=== PATIENT | male | born 1990 | race Caucasian/White ===

== ENCOUNTER 2024-09-08 15:09 | Emergency (ER) | payer OTHER, SELFPAY ==
[2024-09-08 15:13] VITALS: BP 126/81; PULSE 82; RESP 16; TEMP 37; O2SAT 99; BMI 27.3
--- NOTE | 2024-09-08 15:18 | DI.RAD.S_ITS ---
PROCEDURE: XR ANKLE RT MIN 3V INDICATIONS: rolled ankle/felt a pop TECHNIQUE: 3 views of the ankle were acquired. COMPARISON: None. FINDINGS: Bones: No fractures or dislocations. Ankle mortise is normally aligned. No suspicious bony lesions. Soft tissues: No tibiotalar joint effusion. Achilles tendon appears normal. Lateral malleolar soft tissue swelling. IMPRESSION: No acute osseous abnormality. If pain persists with conservative management, consider repeat x-ray in 10-14 days or cross-sectional imaging. Dictated by: Gerardo Spear M.D. on 09/08/2024 at 16:11 Approved by: Gerardo Spear M.D. on 09/08/2024 at 16:25
[2024-09-08 16:24] VITALS: PULSE 78
--- NOTE | 2024-09-08 16:56 | ED.LOWEXIN ---
HPI - Extremity Injury (Lower) <Blanca Arenas PA-C - Last Filed: 09/08/24 20:01> General Chief Complaint: Extremity Injury, Lower Stated Complaint: Ankle Injury Time Seen by Provider: 09/08/24 16:35 Source: patient Mode of arrival: EMS History of Present Illness HPI Narrative: Mr. García is an otherwise healthy 34-year-old male who presents to the emergency department for right foot and ankle pain after a twisting injury that occurred at work prior to arrival. Patient is a protective services case worker. Was walking downstairs when he stepped with his right foot and rolled his ankle internally sustaining immediate pain and popping sensation. Pain is primarily on the lateral aspect of the right ankle and also the dorsal aspect of the foot but pain is now starting to spread to the medial ankle as well. He has some tingling of the foot. He is unable to bear any weight because of the pain. He denies any other injuries, he did not fall or hit his head. Related Data Allergies Allergy/AdvReac Type Severity Reaction Status Date / Time No Known Drug Allergies Allergy Verified 09/08/24 15:13 Review of Systems <Blanca Arenas PA-C - Last Filed: 09/08/24 20:01> Review of Systems ROS Unobtainable: All systems reviewed & are unremarkable except as noted in HPI and below Patient History <Blanca Arenas PA-C - Last Filed: 09/08/24 20:01> Social History Smoking Status: Never smoker Smoking Status: Never smoker tobacco type: smokeless tobacco Exam <Blanca Arenas PA-C - Last Filed: 09/08/24 20:01> Narrative Exam Narrative: GENERAL: 34 year old patient appears stated age. Well-developed patient, in no acute distress. HEAD: Atraumatic. Normocephalic. CARDIOVASCULAR: Regular rate RESPIRATORY: ?Nonlabored respirations. ?Speaking in clear, full sentences. EXTREMITIES: Tenderness to palpation of right ankle lateral and medial malleolus, dorsal midfoot. Swelling over right lateral malleolus. No ecchymosis. No tenderness to palpation of right heel, Achilles tendon, phalanxes. No tenderness to palpation of galloway or knee on the right side. Patient has strong 2+ bilateral DP and PT pulses, brisk capillary refill in all toes, sensation intact to light touch in the plantar and dorsal aspect of bilateral feet. Right lower extremity compartment is soft and compressible. SKIN: No rash or erythema of visible areas Initial Vital Signs Initial Vital Signs: Vital Signs Temperature 98.6 F 09/08/24 15:13 Pulse Rate 82 09/08/24 15:13 Respiratory Rate 16 09/08/24 15:13 Blood Pressure 126/81 09/08/24 15:13 Pulse Oximetry 99 09/08/24 15:13 Oxygen Delivery Method Room Air 09/08/24 15:13 <Jorge DelT oro MD - Last Filed: 09/10/24 12:44> Initial Vital Signs Initial Vital Signs: Vital Signs Temperature 98.6 F 09/08/24 15:13 Pulse Rate 82 09/08/24 15:13 Respiratory Rate 16 09/08/24 15:13 Blood Pressure 126/81 09/08/24 15:13 Pulse Oximetry 99 09/08/24 15:13 Oxygen Delivery Method Room Air 09/08/24 15:13 Course <Blanca Arenas PA-C - Last Filed: 09/08/24 20:01> Orders Ordered: Discontinued Medications Hydrocodone Bitart/Acetaminophen (Hydrocodone/Acet 5/325 Tablet) 1 tab PO NOW ONE Stop: 09/08/24 17:08 Last Admin: 09/08/24 17:19 Dose: 1 tab Documented By: MANSOOR Ibuprofen (Ibuprofen 400 Mg Tablet) 600 mg PO NOW ONE Stop: 09/08/24 17:08 Last Admin: 09/08/24 17:19 Dose: 600 mg Documented By: MANSOOR Vital Signs Vital signs: Vital Signs - 8 hr 09/08/24 15:13 09/08/24 16:24 09/08/24 19:02 Temperature 98.6 F 98 F Pulse Rate 82 80 Pulse Rate [Right Dorsalis Pedis] 78 Respiratory Rate 16 16 Blood Pressure 126/81 122/73 Pulse Oximetry 99 100 Oxygen Delivery Method Room Air Room Air <Jorge Del Toro MD - Last Filed: 09/10/24 12:44> Orders Ordered: Discontinued Medications Hydrocodone Bitart/Acetaminophen (Hydrocodone/Acet 5/325 Tablet) 1 tab PO NOW ONE Stop: 09/08/24 17:08 Last Admin: 09/08/24 17:19 Dose: 1 tab Documented By: MANSOOR Ibuprofen (Ibuprofen 400 Mg Tablet) 600 mg PO NOW ONE Stop: 09/08/24 17:08 Last Admin: 09/08/24 17:19 Dose: 600 mg Documented By: MANSOOR Vital Signs Vital signs: Vital Signs - 8 hr 09/08/24 15:13 09/08/24 16:24 09/08/24 19:02 Temperature 98.6 F 98 F Pulse Rate 82 80 Pulse Rate [Right Dorsalis Pedis] 78 Respiratory Rate 16 16 Blood Pressure 126/81 122/73 Pulse Oximetry 99 100 Oxygen Delivery Method Room Air Room Air MDM - Extremity Injury (Lower) <Blanca Arenas PA-C - Last Filed: 09/08/24 20:01> Imaging Data Right Ankle and Right Foot X-Ray: Radiologist's Impression: PROCEDURE: XR ANKLE RT MIN 3V INDICATIONS: rolled ankle/felt a pop TECHNIQUE: 3 views of the ankle were acquired. COMPARISON: None. FINDINGS: Bones: No fractures or dislocations. Ankle mortise is normally aligned. No suspicious bony lesions. Soft tissues: No tibiotalar joint effusion. Achilles tendon appears normal. Lateral malleolar soft tissue swelling. IMPRESSION: No acute osseous abnormality. If pain persists with conservative management, consider repeat x-ray in 10-14 days or cross-sectional imaging. PROCEDURE: XR FOOT RT MIN 3V INDICATIONS: ankle and dorsal right foot pain after twisting injury TECHNIQUE: 3 views of the foot were acquired. COMPARISON: None. FINDINGS: Bones: No fractures or dislocations. No suspicious bony lesions. Soft tissues: No tibiotalar joint effusion. Achilles tendon appears normal. IMPRESSION: No acute bony abnormality. [facility] Narrative Medical decision making narrative: 34-year-old male who presents to the emergency department for right foot and ankle pain after a twisting injury that occurred at work prior to arrival. Differential diagnosis includes but is not limited to ankle fracture, foot fracture, ankle sprain, ankle strain, ligament injury, etc. On exam patient is in no acute distress, nontoxic appearing, vital signs appropriate. He is significant swelling on the lateral aspect of the right ankle, foot is otherwise neurovascularly intact, soft compartments, Achilles tendon intact. X-ray right foot and ankle ordered, we will treat pain with ibuprofen hydrocodone-acetaminophen. Foot and ankle x-ray negative for acute bony abnormality. Suspect right ankle sprain/ligament injury on the lateral aspect from inversion injury. Patient was placed into a right ankle aircast stirrup and provided with crutches for support. Recommended he follow up with Orthopedics, at 8pm I did call to provide him with [facility] information for Dr. Palomino as I did forget it on his discharge paperwork earlier today. Patient verbalized understanding of all information prior to discharge was agreeable to the plan, stable for discharge home with crutches. ED return precautions discussed. Discharge Plan Departure Patient Disposition: Home Clinical Impression: Inversion sprain of right ankle Qualifiers: Encounter type: initial encounter Qualified Code(s): S93.401A - Sprain of unspecified ligament of right ankle, initial encounter Instructions: DI for Ankle Sprain Activity Restrictions/Additional Instructions: Dear Mr. García, Today you were evaluated for right ankle and foot pain after an injury that occurred at work. X-ray of your right foot and ankle do not show any obvious fractures. Your symptoms are most likely a result of a sprain or injury to the ligaments in the ankle. It is very important to follow up with Orthopedics for further evaluation. Please continue using the crutches and splint as needed for pain. You may start walking on the foot/ankle if the pain improves Please use RICE therapy for your pain in addition to ibuprofen/acetaminophen. Rest the painful area. Ice the area of pain/swelling for at least 15 minutes, 4x a day. Compress the area of swelling using a brace, wrap, or splint if applied. Elevate the painful or swollen extremity by supporting it above the level of the heart with pillows when sitting or laying. Please take Ibuprofen (Motrin/Advil) or Acetaminophen (Tylenol) for pain. These are available over the counter. You may take Ibuprofen 600 mg every 8 hours with food for pain. You may also take Acetaminophen 650 mg every 4-6 hours for pain. Do not exceed 3000 mg of Tylenol a day as this can cause liver damage. Do not drink alcohol with either of these medications. Please follow up with your primary care doctor within the next 2-3 days for ER follow-up. (If you do not have a PCP you can call [phone]. ?to schedule an appointment with an [facility] Primary Care Provider) IF YOU DEVELOP ANY NEW OR WORSENING SYMPTOMS, RETURN TO THE ER! Please read the attached instructions, they highlight more specific treatments and interventions for you at home. Thank you for letting me participate in your care, Blanca Arenas PA-C Stand Alone Forms: Patient Portal/API/Survey, Work Release Note ED Sign-out <Jorge Del Toro MD - Last Filed: 09/10/24 12:44> Cosign ED Attending Cospatrickature Attestation: I was immediately available in the department for consultation. ?This documentation has been reviewed and I agree with assessment and plan. Supervised by Jorge Del Toro MD
--- NOTE | 2024-09-08 17:07 | DI.RAD.S_ITS ---
PROCEDURE: XR FOOT RT MIN 3V INDICATIONS: ankle and dorsal right foot pain after twisting injury TECHNIQUE: 3 views of the foot were acquired. COMPARISON: None. FINDINGS: Bones: No fractures or dislocations. No suspicious bony lesions. Soft tissues: No tibiotalar joint effusion. Achilles tendon appears normal. IMPRESSION: No acute bony abnormality. Dictated by: Chantelle Ness M.D. on 09/08/2024 at 17:33 Approved by: Chantelle Ness M.D. on 09/08/2024 at 17:34
[2024-09-08] MEDS: IBUPROFEN 400 MG TABLET 600 MG PO (17:19)
[2024-09-08] MEDS: HYDROCODONE/ACET 5/325 TABLET 1 TAB PO (17:19)
[2024-09-08 19:02] VITALS: BP 122/73; PULSE 80; RESP 16; TEMP 36.6; O2SAT 100
== END 2024-09-08 19:03 | disposition home or self-care (01) ==
PROVIDERS: Emergency Provider Physician Assistant
DX: S93.401A Sprain of unspecified ligament of right ankle, initial encounter (principal); X50.1XXA Overexertion from prolonged static or awkward postures, initial encounter; Y99.0 Civilian activity done for income or pay
CPT/HCPCS: 29515; 73610; 73630; 99283